=== PATIENT | female | born 1940 | race Caucasian/White ===

== ENCOUNTER → 2019-10-15 | Outpatient (CLI) | payer MEDICARE, OTHER ==
[~2019-10-15] MED LIST: /FEXO18TA; ASPI81TA45; ASPI81TA7 PO; ATEN25TA OR; B COCAP5; CALA240T PO; CALC500T49; CELE1CAP4 PO; CENTRUM SILVER; COLA100C2 PO; COUM1TAB18; COUM1TAB18 PO; HAIR1CAP2 PO; LYRI75CA PO; MAGN250T; METHACHOLINE KIT (J7674) INH ONE; MILKSUS; NASONEX; OXYC1TAB23 PO; PERC5TAB8; PERC7.5T8; PROT1TAB2; RANI1TAB17 OR; RELPAX PO; SENO8.6T5; STOOL SOFTENER; TRIC145T19 PO; TURMCAP PO; TYLE325T5 PO; VITA100067 PO; ZEST10TA; ZOLP-189 PO; gas x OR; ocean spray
--- NOTE | 2019-11-06 15:58 | METHCHAL ---
QUALITY: Study of excellent technical quality. PROCEDURE: Under protocol, methacholine was administered. Even after a maximal dose of 25 mg or 18.875 CDUs, no provocation was ever achieved. IMPRESSION: Negative methacholine challenge study MTDD
--- NOTE | 2019-11-09 07:31 | PFTRPT ---
Visit Date: 10/15/2019 Second ID: [id number] Referring Doctor: Shaw Lunsford MD Height: 61.00 Inches Weight: 216.00 Lbs BSA: 1.95 Diagnosis: R06.02 QUALITY: Study of excellent technical quality. PROCEDURE: Under protocol, methacholine was administered. Even after a total dose of 25 mg or 188.875 CDUs, no provocation dose ever achieved. IMPRESSION: Negative methacholine challenge study. MTDD
== END ==
LOC: M CARPUL 07:10
PROVIDERS: ATTEND Internal Medicine Pulmonary Disease
DX: R06.02 Shortness of breath (principal)
CPT/HCPCS: 94070; 95070; J7674

== ENCOUNTER → 2020-05-24 | Outpatient (REF) | payer MEDICARE, OTHER ==
[~2020-05-24] MED LIST changes: -METHACHOLINE KIT (J7674) INH ONE
== END ==
LOC: M WUC 12:17
PROVIDERS: ATTEND Physician Assistant
DX: R10.84 Generalized abdominal pain (principal)

== ENCOUNTER → 2020-09-23 | Outpatient (REF) | payer MEDICARE, OTHER ==
[2020-09-24 07:34] LABS: H PYLORI QUALITATIVE IgG NEGATIVE (NEGATIVE)
== END ==
LOC: M LAB REF 16:22
PROVIDERS: ATTEND Physician Assistant Medical
DX: R10.13 Epigastric pain (principal)

== ENCOUNTER → 2020-10-14 | Outpatient (CLI) | payer MEDICARE, OTHER ==
[~2020-10-14] MED LIST changes: +ATEN25TA PO; +ATOR1TAB19 PO; +D31000TA2 PO; +ELIQ2.5T PO; +PANT40TA29 PO; +PEPC40TA12 PO; +SM HTAB3 PO; +[UNRECOGNIZED DRUG - OTHER] PO
== END ==
LOC: M LABSMTC 10:05
PROVIDERS: ATTEND Anesthesiology
DX: Z01.812 Encounter for preprocedural laboratory examination (principal); Z20.822 Contact with and (suspected) exposure to COVID-19

== ENCOUNTER → 2020-10-18 | Outpatient (CLI) | payer MEDICARE, OTHER ==
--- NOTE | 2020-10-18 09:56 | REP ---
INDICATION: RUQ PAIN COMPARISON: 05/12/2014 TECHNIQUE: Real time chowdhury scale ultrasound examination using curved array transducer. FINDINGS: Liver is normal in contour, size, and echogenicity without focal hepatic lesions identified. Pancreas is incompletely evaluated due to interposed bowel gas. The gallbladder is normal and without gallstones, wall thickening, or pericholecystic fluid. No biliary ductal dilatation is appreciated and the common bile duct is upper limits of normal for age at 8 mm diameter. Right kidney measures 11.3 x 5.8 x 4.4 cm with multiple suspected peripelvic cysts measuring up to 16 mm and 4 mm nonobstructing lower pole calculus. No ascites in the visualized right upper quadrant. IMPRESSION: Nonacute renal findings as noted above. <Electronically signed by Maury Wells > 10/18/20 [id number]
== END ==
LOC: M RAD 09:01
PROVIDERS: ATTEND Physician Assistant
DX: N20.0 Calculus of kidney (principal)

== ENCOUNTER 2020-10-19 11:21 | Day surgery (SDC) | payer MEDICARE, OTHER ==
[~2020-10-19] VITALS: Ht 154.9 cm; Wt 93.4 kg
[~2020-10-19 11:21] MED LIST changes: +NS 1,000 ML IV ONE
[2020-10-19] MEDS ORDERED: fentaNYL 100 MCG/2 ML INJECTION (J3010) As Ordered ONE (12:44)
[2020-10-19] MEDS ORDERED: propofoL 200 MG/20 ML VIAL As Ordered ONE (12:45)
[2020-10-19] MEDS ORDERED: LIDOCAINE 2% 100MG/5ML SDV (FOR ANES.) As Ordered ONE (12:45)
--- NOTE | 2020-10-19 13:00 | ROOR ---
Patient Name: Moshe Mcbride Procedure Date: 10/19/2020 12:50 PM Date of : 1940 Age: 80 Room: [facility] Gender: Female Note Status: Finalized Procedure: Upper GI endoscopy Indications: Epigastric abdominal pain, Generalized abdominal pain Providers: Haider Kay Jr, MD Referring MD: Carlos Saavedra MD Requesting Provider: Medicines: Propofol per Anesthesia Complications: No immediate complications. Procedure: Pre-Anesthesia Assessment: - Prior to the procedure, a History and Physical was performed, and patient medications and allergies were reviewed. The patient is competent. The risks and benefits of the procedure and the sedation options and risks were discussed with the patient. All questions were answered and informed consent was obtained. Patient identification and proposed procedure were verified by the physician and the nurse in the pre-procedure area and in the procedure room. Mental Status Examination: alert and oriented. Airway Examination: normal oropharyngeal airway and neck mobility. Respiratory Examination: clear to auscultation. CV Examination: normal. ASA Grade Assessment: II - A patient with mild systemic disease. After reviewing the risks and benefits, the patient was deemed in satisfactory condition to undergo the procedure. The anesthesia plan was to use moderate sedation / analgesia (conscious sedation). Immediately prior to administration of medications, the patient was re-assessed for adequacy to receive sedatives. The heart rate, respiratory rate, oxygen saturations, blood pressure, adequacy of pulmonary ventilation, and response to care were monitored throughout the procedure. The physical status of the patient was re-assessed after the procedure. The Endoscope was introduced through the mouth, and advanced to the second part of duodenum. The patient tolerated the procedure well. The upper GI endoscopy was accomplished without difficulty. Findings: The upper third of the esophagus, middle third of the esophagus and lower third of the esophagus were normal. A small hiatal hernia was present. The cardia, gastric fundus, gastric body, gastric antrum, prepyloric region of the stomach and pylorus were normal. The duodenal bulb, first portion of the duodenum and second portion of the duodenum were normal. Impression: - Normal upper third of esophagus, middle third of esophagus and lower third of esophagus. - Small hiatal hernia. - Normal cardia, gastric fundus, gastric body, antrum, prepyloric region of the stomach and pylorus. - Normal duodenal bulb, first portion of the duodenum and second portion of the duodenum. - No specimens collected. Recommendation: - Discharge patient to home (ambulatory). - Return to my office as previously scheduled. Procedure Code(s): --- Professional --- 79471, Esophagogastroduodenoscopy, flexible, transoral; diagnostic, including collection of specimen(s) by brushing or washing, when performed (separate procedure) Diagnosis Code(s): --- Professional --- K44.9, Diaphragmatic hernia without obstruction or gangrene R10.13, Epigastric pain R10.84, Generalized abdominal pain CPT copyright 2019 [employer]. All rights reserved. The codes documented in this report are preliminary and upon skidder lever operator review may be revised to meet current compliance requirements. Haider Kay MD Haider Kay Jr, MD 10/19/2020 1:00:37 PM Electronically signed by Haider Kay Jr, MD Number of Addenda: 0 Note Initiated On: 10/19/2020 12:50 PM Estimated Blood Loss: Estimated blood loss: none.
--- NOTE | 2020-10-19 13:19 | ROOR ---
Patient Name: Moshe Mcbride Procedure Date: 10/19/2020 12:50 PM Date of : 1940 Age: 80 Room: [facility] Gender: Female Note Status: Finalized Procedure: Colonoscopy Indications: Generalized abdominal pain Providers: Haider Kay Jr, MD Referring MD: Carlos Saavedra MD Requesting Provider: Medicines: Propofol per Anesthesia Complications: No immediate complications. Procedure: Pre-Anesthesia Assessment: - Prior to the procedure, a History and Physical was performed, and patient medications and allergies were reviewed. The patient is competent. The risks and benefits of the procedure and the sedation options and risks were discussed with the patient. All questions were answered and informed consent was obtained. Patient identification and proposed procedure were verified by the physician and the nurse in the pre-procedure area and in the procedure room. Mental Status Examination: alert and oriented. Airway Examination: normal oropharyngeal airway and neck mobility. Respiratory Examination: clear to auscultation. CV Examination: normal. ASA Grade Assessment: II - A patient with mild systemic disease. After reviewing the risks and benefits, the patient was deemed in satisfactory condition to undergo the procedure. The anesthesia plan was to use moderate sedation / analgesia (conscious sedation). Immediately prior to administration of medications, the patient was re-assessed for adequacy to receive sedatives. The heart rate, respiratory rate, oxygen saturations, blood pressure, adequacy of pulmonary ventilation, and response to care were monitored throughout the procedure. The physical status of the patient was re-assessed after the procedure. The Colonoscope was introduced through the anus and advanced to the cecum, identified by appendiceal orifice and ileocecal valve. The colonoscopy was performed without difficulty. The patient tolerated the procedure well. The quality of the bowel preparation was adequate. Findings: The rectum, recto-sigmoid colon, transverse colon, ascending colon, cecum, appendiceal orifice and ileocecal valve appeared normal. Two polyps were found in the sigmoid colon and descending colon. The polyps were diminutive in size. These polyps were removed with a cold snare. Resection was complete, but the polyp tissue was only partially retrieved. Scattered small and large-mouthed diverticula were found in the sigmoid colon. Impression: - The rectum, recto-sigmoid colon, transverse colon, ascending colon, cecum, appendiceal orifice and ileocecal valve are normal. - Two diminutive polyps in the sigmoid colon and in the descending colon, removed with a cold snare. Complete resection. Partial retrieval. - Diverticulosis in the sigmoid colon. Recommendation: - Discharge patient to home (ambulatory). - Repeat colonoscopy in 5 years for surveillance based on pathology results. Procedure Code(s): --- Professional --- 69021, Colonoscopy, flexible; with removal of tumor(s), polyp(s), or other lesion(s) by snare technique Diagnosis Code(s): --- Professional --- K63.5, Polyp of colon R10.84, Generalized abdominal pain K57.30, Diverticulosis of large intestine without perforation or abscess without bleeding CPT copyright 2019 [employer]. All rights reserved. The codes documented in this report are preliminary and upon residential instructor review may be revised to meet current compliance requirements. Haider Kay MD Haider Kay Jr, MD 10/19/2020 1:19:16 PM Electronically signed by Haider Kay Jr, MD Number of Addenda: 0 Note Initiated On: 10/19/2020 12:50 PM Estimated Blood Loss: Estimated blood loss: none.
[2020-10-19 14:25] VITALS: BP 192/74
== END 2020-10-19 14:35 | disposition home or self-care (01) ==
LOC: M OPP 11:21
PROVIDERS: ATTEND Surgery
DX: R10.84 Generalized abdominal pain (principal); R10.13 Epigastric pain; R19.4 Change in bowel habit; K21.9 Gastro-esophageal reflux disease without esophagitis; D12.6 Benign neoplasm of colon, unspecified; K57.30 Diverticulosis of large intestine without perforation or abscess without bleeding; K44.9 Diaphragmatic hernia without obstruction or gangrene; I10 Essential (primary) hypertension; E78.5 Hyperlipidemia, unspecified; M19.90 Unspecified osteoarthritis, unspecified site; G43.909 Migraine, unspecified, not intractable, without status migrainosus; Z96.651 Presence of right artificial knee joint; Z88.1 Allergy status to other antibiotic agents; Z88.2 Allergy status to sulfonamides; Z88.8 Allergy status to other drugs, medicaments and biological substances; Z79.01 Long term (current) use of anticoagulants; Z79.899 Other long term (current) drug therapy
CPT/HCPCS: 43235; 45385; 88305; J3010

== ENCOUNTER → 2020-11-02 | Outpatient (CLI) | payer MEDICARE, OTHER ==
[~2020-11-02] MED LIST changes: -NS 1,000 ML IV ONE
--- NOTE | 2020-11-02 16:29 | REP ---
INDICATION: GENERALIZED ABDOMINAL PAIN. COMPARISON: None TECHNIQUE/RADIOTRACER AND DOSE: FOLLOWING THE INTRAVENOUS ADMINISTRATION OF 6.5 MCI TECHNETIUM 99 M-MEBROFENIN, MULTIPLE IMAGES OF THE RIGHT UPPER QUADRANT ARE PERFORMED FOR 60 MINUTES. NEXT 8 OZ OF ENSURE ENLIVE IS INGESTED AND FURTHER IMAGING IS PERFORMED FOR 65 MINUTES. FINDINGS: THE GALLBLADDER IS VISUALIZED AT 25 MINUTES POST INJECTION. THERE IS BILIARY TO BOWEL TRANSIT AT 15MINUTES POST INJECTION. THERE IS NO SCINTIGRAPHIC EVIDENCE OF CHOLECYSTITIS. GALLBLADDER EJECTION FRACTION IS CALCULATED TO BE 87% WHICH IS NORMAL. IMPRESSION: NORMAL GALLBLADDER EJECTION FRACTION. <Electronically signed by Moo Almanzar > 11/02/20 [id number]
== END ==
LOC: M RAD 08:49
PROVIDERS: ATTEND Surgery
DX: R10.84 Generalized abdominal pain (principal); K57.30 Diverticulosis of large intestine without perforation or abscess without bleeding
CPT/HCPCS: 78227; A9537

== ENCOUNTER 2021-02-13 06:45 | Inpatient (IN) | payer MEDICARE, OTHER ==
[~2021-02-13] VITALS: Ht 157.5 cm; Wt 94.7 kg
[2021-02-13] VITALS (7 sets, daily range): BP systolic 122–132; BP diastolic 59–91
[2021-02-13] MEDS ORDERED: NS 500 ML IV ONE (07:25)
[2021-02-13] MEDS ORDERED: MORPHINE 2 MG/ML 1ML VIAL (J2270) IV PRN ×4 (07:25→15:15)
[2021-02-13] MEDS ORDERED: ONDANSETRON 4MG/2ML VIAL IV ONE (07:25)
[2021-02-13 08:26] LABS: BASO % 0.1 % (0.0-1.0); EOS % 0.1 % (0.0-3.0); HEMATOCRIT 39.9 % (36.0-47.0); HEMOGLOBIN 13.3 g/dl (12.0-15.5); LYMPH # 0.4 10^3/uL (1.5-5.0); LYMPH % 2.9 % (24.0-44.0); MEAN CORPUSCULAR HEMOGLOBIN 30.2 pg (27.0-33.0); MEAN CORPUSCULAR HGB CONC 33.3 g/dl (32.0-36.5); MEAN CORPUSCULAR VOLUME 90.7 fl (80.0-96.0); MONO # 0.6 10^3/uL (0.0-0.8); MONO % 3.9 % (2.0-8.0); NEUTROPHILS # 13.7 10^3/uL (1.5-8.5); NEUTROPHILS % 92.3 % (36.0-66.0); PLATELET COUNT, AUTOMATED 145 10^3/uL (150-450); WHITE BLOOD COUNT 14.8 10^3/uL (4.0-10.0)
[2021-02-13] MEDS ORDERED: ISOVUE-370 76% 100ML VIAL As Ordered ONE (08:46)
[2021-02-13 09:02] LABS: ALBUMIN 3.1 GM/DL (3.2-5.2); BILIRUBIN,DIRECT 0.2 MG/DL (0.0-0.2); BILIRUBIN,TOTAL 0.6 MG/DL (0.2-1.0); TOTAL PROTEIN 6.1 GM/DL (6.4-8.2)
--- NOTE | 2021-02-13 09:18 | REP ---
INDICATION: rlq pain, no hx appendicitis; ro diverticulitis. COMPARISON: None TECHNIQUE: Axial contrast-enhanced images from the lung bases to the pubic symphysis using 100 cc Isovue 370 intravenous contrast material. Coronal and sagittal reformations obtained. This CT examination was performed using the following dose reduction techniques: Automated exposure control, adjustment of mA and/or kv according to the patient's size, and the use of iterative reconstruction technique. FINDINGS: Acute right-sided obstructive uropathy with hydroureteronephrosis and perinephric/periureteral stranding secondary to a 7 mm obstructing calculus in the distal right ureter approximately 3 cm from the ureterovesical junction (series 201; images 119-120). Small 2 mm nonobstructing right renal calculi are also identified. Left kidney is grossly normal. Liver includes hemangioma in the dome of the posterior right hepatic lobe. Spleen includes calcifications suggesting prior granulomatous disease. Pancreas, gallbladder, and bilateral adrenal glands are normal. The enteric system is without obstruction or acute inflammatory process. Colonic diverticulosis noted without acute diverticulitis. Pelvis demonstrates normal bladder and evidence for prior hysterectomy. No ascites. No free air. No adenopathy. Atherosclerotic changes to the aorta noted without aneurysm or dissection. Musculoskeletal structures demonstrate age-related degenerative changes. Lung bases demonstrate chronic granulomatous disease. IMPRESSION: 1. Acute moderate right-sided obstructive uropathy with a 7 mm obstructing calculus in the distal right ureter along with 2 mm nonobstructing right renal calculus. 2. Benign hepatic hemangioma. 3. Diverticulosis. <Electronically signed by Maury Wells > 02/13/21 0943
[2021-02-13] MEDS ORDERED: MEROPENEM INJ 1 GM in IV 1 EA IV ONE (10:30)
[2021-02-13] MEDS ORDERED: NS 1,000 ML IV ONE ×2 (10:35→11:15)
[2021-02-13] MEDS ORDERED: ACETAMINOPHEN 325 MG TAB PO ONE (10:35)
[2021-02-13] MEDS ORDERED: KETOROLAC 30 MG/ML 1ML VIAL IV ONE (10:40)
[2021-02-13] MEDS ORDERED: ELIQ5TAB PO (11:03)
[2021-02-13] MEDS ORDERED: ELET40TA PO (11:03)
[2021-02-13] MEDS ORDERED: ESTR62CR VG (11:03)
[2021-02-13] MEDS ORDERED: HOME MED LIST COMPLETE! XX SCH (11:05)
--- NOTE | 2021-02-13 11:12 | HPEPDOC ---
[facility] Medical History & Physical Date of Admission Feb 13, 2021 Date of Service: Feb 13, 2021 History and Physical CHIEF COMPLAINT: "Right side pain" HISTORY OF PRESENT ILLNESS: 80-year-old female with past medical history of atrial fibrillation, hypertension, hyperlipidemia, migraines, and gastritis presented to emergency room department with complaints of sharp right flank pain. Patient was lethargic after receiving morphine but arousable and able to answer questions appropriately. Due to her pain majority of the history was obtained from the was on the phone. On 02/10 she began to have right flank pain which she thought was a pulled muscle therefore did not seek medical advice. However, today she began to experience chills and worsening pain therefore prompting her to come to the emergency room department for further evaluation. The pain wraps around from the pelvic region into her right flank. She is unable to identify any aggravating relieving factors. She also reports having dysuria. She denies hematuria. She denies chest pain, shortness of breath, nausea, vomiting, problem with bowel movements. Emergency room department patient was febrile (to 103), tachycardic and CT scan showed findings consistent with obstructive uropathy. PAST MEDICAL HISTORY: As above PAST SURGICAL HISTORY: Hysterectomy, appendectomy, carpal tunnel release of the right hand, right knee surgery x2, bladder suspension, hemorrhoid surgery. SOCIAL HISTORY: Lives with her . Denies smoking, drinking, use of recreational drugs FAMILY HISTORY: Father: Diabetes and coronary artery disease Mother: Emphysema ALLERGIES: Please see below. REVIEW OF SYSTEMS: 10 point review of system was negative except for what is noted in the HPI HOME MEDICATIONS: Please see below. PHYSICAL EXAMINATION: VITAL SIGNS: Please see below General: Lying in bed, no acute distress Head/Neck/Throat: Trachea midline, mucous membranes moist Eyes: Sclera anicteric, PERRLA Thorax: Normal respiratory effort on room air, lungs clear to auscultation bilaterally, no wheezes/rales/rhonchi Cardiovascular: Tachycardia to 125, regular rhythm, normal S1, S2; no S3, S4, rubs/gallops/murmurs Abdomen: Bowel sounds present, soft/nontender/nondistended Genitourinary: Right-sided CVA tenderness Musculoskeletal: Moving all extremities, no edema Skin: Warm, dry Neurologic: AAOx3, speech fluent and goal-directed, no focal deficits, grossly intact LABORATORY DATA: See below. IMAGING: Please see imaging section MICROBIOLOGY: Please see below. ASSESSMENT/PLAN: 80-year-old female presented emergency room department with right-sided flank pain. In emergency room department she was noted to ne tachycardic to 125, febrile with temperature of 103, and leukocytosis (14.8). CT scan showed right- sided obstructive uropathy. #Sepsis -Meets SIRS criteria with known source - secondary to obstructive uropathy causing pyelonephritis. 30cc/kg fluids to be given, and then to be started on maintenance fluids. Hemodynamically stable at this time, and lactic acid within normal limits. Follow-up on blood and urine cultures. Continue with broad-spectrum antibiotics. Urology has been consulted for likely decompression. #Obstructive uropathy/pyelonephritis -Plan above -will give morphine in low doses for her pain as she is sensitive. #Electrolyte abnormality -Replete potassium. #Atrial fibrillation with rapid ventricular response -Exacerbated secondary to acute infection. Following fluid resuscitation if patient's heart rate remains elevated we will treat her with beta-yan if needed. Hold systemic anticoagulation for anticipation of possible surgical intervention. #Gastritis -Continue with Protonix. #DVT prophylaxis -Anticipate surgery, therefore we will hold off on chemical prophylaxis and start SCDs. Vital Signs Vital Signs Date Time Temp Pulse Resp B/P (MAP) Pulse Ox O2 Delivery O2 Flow Rate FiO2 02/13/21 08:00 22 Room Air 02/13/21 06:58 99.2 105 169/71 (103) 95 Laboratory Data Labs 24H Laboratory Tests 2 02/13/21 08:14: Immature Granulocyte % (Auto) 0.7, Neutrophils (%) (Auto) 92.3H, Lymphocytes (%) (Auto) 2.9L, Monocytes (%) (Auto) 3.9, Eosinophils (%) (Auto) 0.1, Basophils (%) (Auto) 0.1, Neutrophils # (Auto) 13.7H, Lymphocytes # (Auto) 0.4L, Monocytes # (Auto) 0.6, Eosinophils # (Auto) 0.0, Basophils # (Auto) 0.0, Nucleated Red Blood Cells % (auto) 0.0, Urine Color YELLOW, Urine Appearance CLOUDYH, Urine pH 5.0, Urine Specific [place] 1.024, Urine Protein 1+H, Urine Glucose (UA) NEGATIVE, Urine Ketones TRACEH, Urine Blood 3+H, Urine Nitrite POSITIVEH, Urine Bilirubin NEGATIVE, Urine Urobilinogen 0.2, Urine Leukocyte Esterase 2+H, Urine WBC (Auto) 159H, Urine RBC (Auto) 21H, Urine Hyaline Casts (Auto) 0, Urine Bacteria (Auto) 1+H, Urine Squamous Epithelial Cells 18, Urine Transitional Epithelial Cells 1, Urine Mucus (Auto) SMALL, Urine Sperm (Auto) , Total Bilirubin 0.6, Direct Bilirubin 0.2, Aspartate Amino Transf (AST/SGOT) 24, Alanine Aminotransferase (ALT/SGPT) 28, Alkaline Phosphatase 98, ZE-Ctc-I-Type Natriuretic Peptide 210, Total Protein 6.1L, Albumin 3.1L, Albumin/Globulin Ratio 1.0L, Amylase Level 12L, Lipase 45L 02/13/21 08:15: POC Lactate (Misc Panel) 1.42 02/13/21 08:20: POC Glucose (Misc Panel) 103, POC Sodium (Misc Panel) 142, POC Potassium (Misc Panel) 3.4L, POC Chloride (Misc Panel) 108, POC Total CO2 (Misc Panel) 22.0L, POC Blood Urea Nitrogen (Misc Panel 30H, POC Ionized Calcium (Misc Panel) 4.5, POC Creatinine (Misc Panel) 0.6, POC Hematocrit (Misc Panel) 41.0 CBC/BMP Laboratory Tests 02/13/21 08:14 Microbiology Microbiology 02/13/21 Blood Culture, Received Pending 02/13/21 Urine Culture, Received Pending 02/13/21 Blood Culture, Received Pending Home Medications Scheduled Apixaban (Eliquis) 5 Mg Tablet, 5 MG PO BID Atorvastatin Calcium (Atorvastatin Calcium) 10 Mg Tablet, 10 MG PO DAILY Cholecalciferol (Vitamin D3) (Vitamin D3) 1,000 Unit Tablet, 1,000 UNITS PO DAILY Conjugated Estrogens (Premarin) 30 Gm Cream.appl, 0.25 GM VG 3XW Famotidine (Pepcid) 40 Mg Tablet, 40 MG PO DAILY Pantoprazole Sodium (Pantoprazole Sodium) 40 Mg Tablet.dr, 40 MG PO DAILY Verapamil Hcl (Calan Sr) 240 Mg Tablet.er, 240 MG PO DAILY Scheduled PRN Eletriptan Hydrobromide (Eletriptan HBr) 40 Mg Tablet, 40 MG PO BID PRN for MIGRAINE Allergies Coded Allergies: erythromycin base (Verified Allergy, Unknown, 02/13/21) Sulfa (Sulfonamide Antibiotics) (Verified Adverse Reaction, Mild, N/V, 02/13/21) niacin (Verified Adverse Reaction, Mild, hot flashes, 02/13/21) phenobarbital (Verified Adverse Reaction, Mild, AGITATION, 02/13/21) pravastatin (Verified Adverse Reaction, Mild, bones ache, 02/13/21) A-FIB/CHADSVASC A-FIB History Current/History of A-Fib/PAF?: Yes Current PO Anticoag Therapy: Yes SELENE ZAFAR M.D. Feb 13, 2021 11:12
[2021-02-13] MEDS ORDERED: MORPHINE 4 MG/ML 1ML VIAL/SYRINGE (J2270) IV PRN (11:15)
[2021-02-13 11:16] LABS: RSV AMPLIFICATION NEGATIVE (NEGATIVE)
[2021-02-13] MEDS ORDERED: ACETAMINOPHEN SUSP DYE FREE 160 MG/5 ML UDC PO ONE (11:35)
--- NOTE | 2021-02-13 11:40 | REP ---
INDICATION: pyelo COMPARISON: 09/13/2015 TECHNIQUE: Portable AP view of the chest FINDINGS: The mediastinum and cardiac silhouette are stable and within normal limits for portable technique. The lung queen are clear without acute consolidation, effusion, or pneumothorax. Skeletal structures are intact. IMPRESSION: No acute cardiopulmonary process appreciated. <Electronically signed by Maury Wells > 02/13/21 [id number]
[2021-02-13] MEDS ORDERED: NALOXONE INJ 0.4MG/1ML VIAL (J2310 PER 1MG) IV PRN (11:45)
[2021-02-13] MEDS: PANTOPRAZOLE 40MG VIAL (C9113 PER 1) IV SCH (11:50)
[2021-02-13] MEDS ORDERED: KCL 10MEQ/100ML SWI (KRUN) 10 MEQ in IV 1 EA IV SCH (13:00)
--- NOTE | 2021-02-13 13:41 | IPNPDOC ---
Date Seen The patient was seen on 02/13/21. Progress Note Obstructing right ureteral stone. Tachycardia, fever, leukocytosis. Plan is right ureteral stent placement under anesthesia. I reviewed the imaging. I reviewed the hospitalist's history and physical. I talked with the patient. She is in agreement. VS, I&O, 24H, Aamirbone Vital Signs/I&O Vital Signs Date Time Temp Pulse Resp B/P (MAP) Pulse Ox O2 Delivery O2 Flow Rate FiO2 02/13/21 11:15 123 18 150/66 (94) 95 Nasal Cannula 2.0 02/13/21 10:00 103.7 Laboratory Data 24H LABS Laboratory Tests 2 02/13/21 08:14: Immature Granulocyte % (Auto) 0.7, Neutrophils (%) (Auto) 92.3H, Lymphocytes (%) (Auto) 2.9L, Monocytes (%) (Auto) 3.9, Eosinophils (%) (Auto) 0.1, Basophils (%) (Auto) 0.1, Neutrophils # (Auto) 13.7H, Lymphocytes # (Auto) 0.4L, Monocytes # (Auto) 0.6, Eosinophils # (Auto) 0.0, Basophils # (Auto) 0.0, Nucleated Red Blood Cells % (auto) 0.0, Urine Color YELLOW, Urine Appearance CLOUDYH, Urine pH 5.0, Urine Specific [place] 1.024, Urine Protein 1+H, Urine Glucose (UA) NEGATIVE, Urine Ketones TRACEH, Urine Blood 3+H, Urine Nitrite POSITIVEH, Urine Bilirubin NEGATIVE, Urine Urobilinogen 0.2, Urine Leukocyte Esterase 2+H, Urine WBC (Auto) 159H, Urine RBC (Auto) 21H, Urine Hyaline Casts (Auto) 0, Urine Bacteria (Auto) 1+H, Urine Squamous Epithelial Cells 18, Urine Transitional Epithelial Cells 1, Urine Mucus (Auto) SMALL, Urine Sperm (Auto) , Total Bilirubin 0.6, Direct Bilirubin 0.2, Aspartate Amino Transf (AST/SGOT) 24, Alanine Aminotransferase (ALT/SGPT) 28, Alkaline Phosphatase 98, UQ-Kxk-K-Type Natriuretic Peptide 210, Total Protein 6.1L, Albumin 3.1L, Albumin/Globulin Ratio 1.0L, Amylase Level 12L, Lipase 45L, Coronavirus (COVID-19)(PCR) NEGATIVE, Influenza Type A (RT-PCR) NEGATIVE, Influenza Type B (RT-PCR) NEGATIVE, Respiratory Syncytial Virus (PCR) NEGATIVE 02/13/21 08:15: POC Lactate (Misc Panel) 1.42 02/13/21 08:20: POC Glucose (Misc Panel) 103, POC Sodium (Misc Panel) 142, POC Potassium (Misc Panel) 3.4L, POC Chloride (Misc Panel) 108, POC Total CO2 (Misc Panel) 22.0L, POC Blood Urea Nitrogen (Misc Panel 30H, POC Ionized Calcium (Misc Panel) 4.5, POC Creatinine (Misc Panel) 0.6, POC Hematocrit (Misc Panel) 41.0 CBC/BMP Laboratory Tests 02/13/21 08:14 Microbiology Microbiology 02/13/21 Blood Culture, Received Pending 02/13/21 Urine Culture, Received Pending 02/13/21 Blood Culture, Received Pending PINKY CHRISTENSEN MD Feb 13, 2021 13:41
[2021-02-13] MEDS ORDERED: dexameTHASONE 4 MG/ML 1ML VIAL (J1100 PER 1MG) As Ordered ONE (13:44)
[2021-02-13] MEDS ORDERED: ONDANSETRON 4MG/2ML VIAL As Ordered ONE (13:44)
[2021-02-13] MEDS ORDERED: propofoL 200 MG/20 ML VIAL As Ordered ONE (13:44)
[2021-02-13] MEDS ORDERED: LIDOCAINE 2% 100MG/5ML SDV (FOR ANES.) As Ordered ONE (13:44)
[2021-02-13] MEDS ORDERED: CONRAY-60 60% 50ML VIAL (Q9961) As Ordered ONE (13:44)
[2021-02-13] MEDS ORDERED: fentaNYL 100 MCG/2 ML INJECTION (J3010) As Ordered ONE (13:44)
[2021-02-13] MEDS ORDERED: MIDAZOLAM INJ 2MG/2ML VIAL (J2250 PER 1MG) As Ordered ONE (13:44)
[2021-02-13] MEDS ORDERED: SEVOFLURANE INHAL SOLN 250 ML BTL As Ordered ONE (13:52)
--- NOTE | 2021-02-13 13:53 | SMCUROLCON ---
Urology Consultation General Date of Consultation 02/13/21 Reason For Consultation asked to see this 80yo woman because of a right ureteral stone History of Present Illness 80-year-old woman. Presented to the ER with right flank pain. CT obtained. There is a stone in the distal ureter causing obstruction. Patient is febrile and tachycardic. Leukocytosis. Creatinine normal. Lactate 1.42. Urine and blood cultures pending. Past Medical History Medical History Hypertension, A. fib, hyperlipidemia, migraines Surgical Hstory Appendectomy, hysterectomy, right carpal tunnel, right knee surgery x2, bladder suspension, hemorrhoid surgery Family History Significant Family History: No pertinent family hx Social History Social History , denies tobacco Medications Current Medications Current Medications Medications (Trade) Dose Ordered Sig/Maria L Route PRN Reason Start Time Stop Time Status Last Admin Dose Admin Home Med (Home Med List Complete!) ASDIRECTED XX 02/13/21 11:05 02/13/21 11:09 DC Ketorolac Tromethamine (ToRADol) 15 mg Q8H PRN IV PAIN LEVEL 1-4 02/13/21 11:15 02/18/21 11:14 Morphine Sulfate (Morphine Sulfate Inj) 1 mg Q4H PRN IV PAIN LEVEL 5-7 02/13/21 15:15 Morphine Sulfate (Morphine Sulfate Inj) 2 mg Q30M PRN IV MODERATE PAIN (PS 5-7) 02/13/21 07:25 02/13/21 11:22 DC 02/13/21 08:00 Morphine Sulfate (Morphine Sulfate Inj) 2 mg Q30M PRN IV MODERATE PAIN (PS 5-7) 02/13/21 10:40 02/13/21 11:22 DC Morphine Sulfate (Morphine Sulfate Inj) 2 mg Q4H PRN IV PAIN LEVEL 5-7 02/13/21 11:15 02/13/21 11:41 DC Morphine Sulfate (Morphine Sulfate Inj) 2 mg Q4H PRN IV PAIN LEVEL 7-10 02/13/21 15:15 Morphine Sulfate (Morphine Sulfate Inj) 4 mg Q4H PRN IV PAIN LEVEL 7-10 02/13/21 11:15 02/13/21 11:41 DC Naloxone HCl (Narcan) 0.1 mg Q5MP PRN IV RESP. RATE < 10 02/13/21 11:45 Pantoprazole Sodium (Protonix) 40 mg DAILY IV 02/13/21 11:25 02/13/21 11:50 Piperacillin Sod/ Tazobactam Sod 3.375 gm/Dextrose 50 ml @ 50 mls/hr Q6H IV 02/13/21 16:00 Potassium Chloride 10 meq/ IV Miscellaneous Supplies 100 ml @ 100 mls/hr Q1H IV 02/13/21 13:00 02/13/21 17:59 Sodium Chloride 1,000 ml @ 125 mls/hr Q8H IV 02/13/21 11:25 Allergies Allergies: Coded Allergies: erythromycin base (Verified Allergy, Unknown, 02/13/21) Sulfa (Sulfonamide Antibiotics) (Verified Adverse Reaction, Mild, N/V, 02/13/21) niacin (Verified Adverse Reaction, Mild, hot flashes, 02/13/21) phenobarbital (Verified Adverse Reaction, Mild, AGITATION, 02/13/21) pravastatin (Verified Adverse Reaction, Mild, bones ache, 02/13/21) Review of Systems General: Denies: Night Sweats Constitutional: Reports: Fever Eyes: Denies: Vision change ENT: Denies: Head Aches Skin: Denies: Rash Pulmonary: Denies: Cough Cardiovascular: Denies Chest Pain Gastrointestinal: Denies: Diarrhea Genitourinary: Denies: Hematuria Hematologic: Denies: Bruising Endocrine: Denies: Polydipsia Musculoskeletal: Denies: Neck Pain Neurological: Denies: Weakness Psych: Reports: Mood Normal Physical Examination General Exam: Alert, Moderate Distress EYE EXAM: Conjunctiva & lids normal ENT EXAM: Mucous membr. moist/pink Neck Exam: Supple Chest Exam: Normal air movement Heart Exam: Tachycardic Abdomen Exam: Soft Extremity Exam: No: Cyanosis Skin Exam: Nl turgor and temperature Neuro Exam: Normal Speech Psych Exam: Mental status NL Vital Signs/I&O Vital Signs Date Time Temp Pulse Resp B/P (MAP) Pulse Ox O2 Delivery O2 Flow Rate FiO2 02/13/21 11:15 123 18 150/66 (94) 95 Nasal Cannula 2.0 02/13/21 10:00 103.7 Laboratory Data 24H Labs Laboratory Tests 2 02/13/21 08:14: Immature Granulocyte % (Auto) 0.7, Neutrophils (%) (Auto) 92.3H, Lymphocytes (%) (Auto) 2.9L, Monocytes (%) (Auto) 3.9, Eosinophils (%) (Auto) 0.1, Basophils (%) (Auto) 0.1, Neutrophils # (Auto) 13.7H, Lymphocytes # (Auto) 0.4L, Monocytes # (Auto) 0.6, Eosinophils # (Auto) 0.0, Basophils # (Auto) 0.0, Nucleated Red Blood Cells % (auto) 0.0, Urine Color YELLOW, Urine Appearance CLOUDYH, Urine pH 5.0, Urine Specific [place] 1.024, Urine Protein 1+H, Urine Glucose (UA) NEGATIVE, Urine Ketones TRACEH, Urine Blood 3+H, Urine Nitrite POSITIVEH, Urine Bilirubin NEGATIVE, Urine Urobilinogen 0.2, Urine Leukocyte Esterase 2+H, Urine WBC (Auto) 159H, Urine RBC (Auto) 21H, Urine Hyaline Casts (Auto) 0, Urine Bacteria (Auto) 1+H, Urine Squamous Epithelial Cells 18, Urine Transitional Epithelial Cells 1, Urine Mucus (Auto) SMALL, Urine Sperm (Auto) , Total Bilirubin 0.6, Direct Bilirubin 0.2, Aspartate Amino Transf (AST/SGOT) 24, Alanine Aminotransferase (ALT/SGPT) 28, Alkaline Phosphatase 98, SY-Vix-L-Type Natriuretic Peptide 210, Total Protein 6.1L, Albumin 3.1L, Albumin/Globulin Ratio 1.0L, Amylase Level 12L, Lipase 45L, Coronavirus (COVID-19)(PCR) NEGATIVE, Influenza Type A (RT-PCR) NEGATIVE, Influenza Type B (RT-PCR) NEGATIVE, Respiratory Syncytial Virus (PCR) NEGATIVE 02/13/21 08:15: POC Lactate (Misc Panel) 1.42 02/13/21 08:20: POC Glucose (Misc Panel) 103, POC Sodium (Misc Panel) 142, POC Potassium (Misc Panel) 3.4L, POC Chloride (Misc Panel) 108, POC Total CO2 (Misc Panel) 22.0L, POC Blood Urea Nitrogen (Misc Panel 30H, POC Ionized Calcium (Misc Panel) 4.5, POC Creatinine (Misc Panel) 0.6, POC Hematocrit (Misc Panel) 41.0 CBC/BMP Laboratory Tests 02/13/21 08:14 Microbiology Microbiology 02/13/21 Blood Culture, Received Pending 02/13/21 Urine Culture, Received Pending 02/13/21 Blood Culture, Received Pending Assessment Obstructing right ureteral stone. Leukocytosis, fever, tachycardia. Plan Plan is placement of right ureteral stent under anesthesia. PINKY CHRISTENSEN MD Feb 13, 2021 13:53
--- NOTE | 2021-02-13 14:40 | ROOPDOC ---
[facility] Report Of Operation Report of Operation DATE OF PROCEDURE: 02/13/21 PREPROCEDURE DIAGNOSES: [obstructing right ureteral stone, leukocytosis, fever, tachycardia]. POSTPROCEDURE DIAGNOSES: [same]. PROCEDURE PERFORMED: [cysto, fluoro, right stent placement]. SURGEON: [Coco Christensen MD CAR WORKER: [none], ANESTHESIA: [lma general]. ESTIMATED BLOOD LOSS: Approximately [0] mL. COMPLICATIONS: [none]. REMARKS: [80-year-old white female presented to the ER with right flank pain. Imaging was done. Distal right ureteral stone. Sepsis. Leukocytosis, fever and tachycardia. Stent placement was arranged. Informed consent was obtained. Risks were discussed such as infection, bleeding, scarring and others]. FINDINGS: SPECIMENS REMOVED: PROCEDURE NOTE: . DESCRIPTION OF PROCEDURE: [I talked with the patient before surgery and answered her questions. She wished to proceed. Patient was brought to the OR room. LMA general anesthesia was secured. Dorsolithotomy position. Well-padded. Prepped and draped in usual sterile fashion. A timeout was performed. Surgery was done under antimicrobial coverage. Rigid cystoscopy was performed. Bladder filled with debris. Urine was brownish. The right ureteral orifice was identified. A wire was passed up the ureter as seen using fluoroscopy. Fluoroscopy demonstrated contrast still in the kidney and ureter from prior imaging. With the wire in place a 6 Japanese multilength stent was placed using the Seldinger technique. This ended surgery. The bladder was emptied and the cystoscope was removed. Patient tolerated everything well. Ureteroscopy some other admission.]. PINKY CHRISTENSEN MD Feb 13, 2021 14:40
[2021-02-13] MEDS ORDERED: fentaNYL 100 MCG/2 ML INJECTION (J3010) IV PRN (15:00)
[2021-02-13] MEDS ORDERED: ONDANSETRON 4MG/2ML VIAL IV PRN (15:00)
[2021-02-13] MEDS ORDERED: oxyCODONE 5MG TAB PO PRN (15:00)
[2021-02-13] MEDS ORDERED: LR 1,000 ML IV SCH (15:00)
--- NOTE | 2021-02-13 15:15 | REP ---
INDICATION: RIGHT STENT PLACEMENT. COMPARISON: None. TECHNIQUE: Intraoperative fluoroscopic imaging using portable C-arm technique. FINDINGS: Single image demonstrates moderate hydroureteronephrosis with a ureteral stent identified in satisfactory position. Total fluoroscopic time 3 seconds. IMPRESSION: Moderate hydroureteronephrosis with right ureteral stent placement. <Electronically signed by Maury Wells > 02/13/21 0079
[2021-02-13] MEDS: NS 1,000 ML IV SCH ×2 (15:53→20:37)
[2021-02-13] MEDS: PIPERACILLIN/TAZOBACTAM SOD 3.375 GM in D5W MINI-BAG PLUS 50 ML IV SCH ×2 (15:53→22:14)
[2021-02-13] MEDS: KCL 10MEQ/100ML SWI (KRUN) 10 MEQ in IV 1 EA IV SCH ×4 (17:27→23:23)
--- NOTE | 2021-02-13 19:11 | ECGEPIP ---
[facility] - ED Test Date: 2021-02-13 Pat Name: FRANCISCO JAVIER FLAHERTY Department: Room: - Gender: Female Braid Folder: [id number] : 1940 Requested By: Melina Castellanos Order Number: [id number] Reading MD: Nessa Gong Measurements Intervals [place] Rate: 125 P: 25 MT: 134 QRS: -28 QRSD: 74 T: 102 QT: 276 QTc: 398 Interpretive Statements Sinus tachycardia Possible Left atrial enlargement ST & T wave abnormality, consider ischemia increased rate 09/13/15 Electronically Signed on 02-13-2021 19:11:07 EST by Nessa Gong
[2021-02-13] MEDS ORDERED: ESTROGENS VAGINAL CREAM 30GM PV SCH (20:20)
[2021-02-13] MEDS ORDERED: SUMAtriptan SUCCINATE 25 MG TAB PO ONE (22:00)
[2021-02-14 00:50] VITALS: BP 135/68
[2021-02-14] MEDS: KETOROLAC 30 MG/ML 1ML VIAL IV PRN (00:51)
[2021-02-14] MEDS: KCL 10MEQ/100ML SWI (KRUN) 10 MEQ in IV 1 EA IV SCH (00:51)
[2021-02-14] MEDS: PIPERACILLIN/TAZOBACTAM SOD 3.375 GM in D5W MINI-BAG PLUS 50 ML IV SCH ×4 (05:44→21:38)
[2021-02-14 06:26] LABS: BASO % 0.1 % (0.0-1.0); HEMATOCRIT 38.1 % (36.0-47.0); HEMOGLOBIN 12.1 g/dl (12.0-15.5); LYMPH # 1.1 10^3/uL (1.5-5.0); LYMPH % 5.8 % (24.0-44.0); MEAN CORPUSCULAR HEMOGLOBIN 29.3 pg (27.0-33.0); MEAN CORPUSCULAR HGB CONC 31.8 g/dl (32.0-36.5); MEAN CORPUSCULAR VOLUME 92.3 fl (80.0-96.0); MONO # 1.2 10^3/uL (0.0-0.8); MONO % 6.4 % (2.0-8.0); NEUTROPHILS # 16.3 10^3/uL (1.5-8.5); NEUTROPHILS % 86.3 % (36.0-66.0); PLATELET COUNT, AUTOMATED 143 10^3/uL (150-450); RED BLOOD COUNT 4.13 10^6/uL (4.00-5.40); WHITE BLOOD COUNT 18.9 10^3/uL (4.0-10.0)
[2021-02-14 06:50] LABS: ALBUMIN 2.7 GM/DL (3.2-5.2); ALT/SGPT 36 U/L (12-78); BILIRUBIN,TOTAL 0.3 MG/DL (0.2-1.0); BLOOD UREA NITROGEN 30 MG/DL (7-18); CALCIUM LEVEL 8.8 MG/DL (8.8-10.2); CARBON DIOXIDE LEVEL 23 MEQ/L (21-32); CHLORIDE LEVEL 113 MEQ/L (98-107); CREATININE FOR GFR 0.68 MG/DL (0.55-1.30); GLOMERULAR FILTRATION RATE > 60.0 (>39); GLUCOSE, FASTING 125 MG/DL (70-100); MAGNESIUM LEVEL 2.1 MG/DL (1.8-2.4); PHOSPHORUS LEVEL 2.5 MG/DL (2.5-4.9); POTASSIUM SERUM 4.5 MEQ/L (3.5-5.1); SODIUM LEVEL 141 MEQ/L (136-145); TOTAL PROTEIN 6.4 GM/DL (6.4-8.2)
[2021-02-14] MEDS: PANTOPRAZOLE 40MG VIAL (C9113 PER 1) IV SCH (08:28)
[2021-02-14] MEDS: VERAPAMIL 120 MG SR TAB PO SCH (08:29)
[2021-02-14] MEDS: VITAMIN D 1,000 INTERNATIONAL UNITS TABLET PO SCH (08:29)
[2021-02-14] MEDS: ATORVASTATIN 10 MG TAB PO SCH (08:29)
[2021-02-14] MEDS ORDERED: FAMOTIDINE 20 MG TAB PO SCH (09:00)
[2021-02-14 14:00] VITALS: BP 148/69
[2021-02-14] MEDS ORDERED: ELETRIPTAN HBR 40 MG PO PRN (14:40)
[2021-02-14] MEDS: NS 1,000 ML IV SCH ×2 (16:44→23:17)
--- NOTE | 2021-02-14 17:46 | IPNPDOC ---
Text Note Date of Service The patient was seen on 02/14/21. NOTE Subjective: 80-year-old female presented to emergency room department with complaints of sharp right flank pain. She was noted to be septic secondary to obstructive uropathy. She underwent right ureteral stent placement on 02/13. Seen and examined at bedside this morning. She was in good spirits and reported feeling well today and improvement in her right flank pain. She denied chest pain, shortness of breath, abdominal pain, nausea, vomiting, problems with urination or bowel movements. Review of systems: 10 point review of system was negative except for what is noted in the HPI Physical exam: General: Lying in bed, no acute distress Head/Neck/Throat: Trachea midline, mucous membranes moist Eyes: Sclera anicteric, no erythema or discharge appreciated bilaterally Thorax: Normal respiratory effort on room air, lungs clear to auscultation bilaterally, no wheezes/rales/rhonchi Cardiovascular: Normal rate, regular rhythm, normal S1, S2; no S3, S4, rubs/gallops/murmurs Abdomen: Bowel sounds present, soft/nontender/nondistended Genitourinary: No CVA tenderness, no Lechuga in place Musculoskeletal: Moving all extremities, no edema Skin: Warm, dry Neurologic: AAOx3, speech fluent and goal-directed, no focal deficits, grossly intact Labs: See below Imaging: Please see imaging section Assessment/plan: 80-year-old female presented emergency room department with right-sided flank pain. In emergency room department she was noted to ne tachycardic to 125, febrile with temperature of 103, and leukocytosis (14.8). CT scan showed right- sided obstructive uropathy. #Sepsis -Met SIRS criteria with known source - secondary to obstructive uropathy causing pyelonephritis. Hemodynamically remained stable. -Blood cultures growing gram-negative rods. Urine culture is pending. Continue with broad-spectrum antibiotics sensitivities have resulted. #Obstructive uropathy/pyelonephritis -POD #1 right ureteral stent. Continue to strain urine. -will give morphine in low doses for her pain as she is sensitive. #Gram-negative bacteremia -Likely urine source. Continue with broad-spectrum antibiotics until cultures and sensitivities are resulted. #Electrolyte abnormality -Replete potassium. #Atrial fibrillation with rapid ventricular response -Resolved. This was likely exacerbated by her acute infection. Resume systemic anticoagulation with Eliquis. #Gastritis -Continue with Protonix. #DVT prophylaxis -Restarted on Eliquis. Disposition: Pending cultures VS,Fishbone, I+O VS, Fishbone, I+O Laboratory Tests 02/14/21 05:38 Vital Signs Date Time Temp Pulse Resp B/P (MAP) Pulse Ox O2 Delivery O2 Flow Rate FiO2 02/14/21 14:00 97.7 90 18 148/69 (95) 95 Room Air 02/13/21 16:50 1.0 I&O- Last 24 Hours up to 6 AM 02/14/21 06:00 Intake Total 2245 ml Output Total 950 ml Balance 1295 ml SELENE ZAFAR M.D. Feb 14, 2021 17:46
[2021-02-14] MEDS: APIXABAN 5 MG TAB (ELIQUIS) PO SCH (21:38)
[2021-02-14 22:00] VITALS: BP 146/64
[2021-02-15] MEDS: PIPERACILLIN/TAZOBACTAM SOD 3.375 GM in D5W MINI-BAG PLUS 50 ML IV SCH ×2 (03:55→08:56)
[2021-02-15] MEDS: KETOROLAC 30 MG/ML 1ML VIAL IV PRN (03:58)
[2021-02-15 06:00] VITALS: BP 139/63
--- NOTE | 2021-02-15 06:56 | IPNPDOC ---
Date Seen The patient was seen on 02/15/21. Progress Note pt seen and examined walking in room pain on right is gone avss belly soft urine cx pending wbc elevated yesterday, no labs from today that I see Zosyn no new gu thoughts except no need for tamsulosin, with stent in place stone will not pass ureteroscopy in future (not this admission) thank you VS, I&O, 24H, Fishbone Vital Signs/I&O Vital Signs Date Time Temp Pulse Resp B/P (MAP) Pulse Ox O2 Delivery O2 Flow Rate FiO2 02/15/21 06:00 97.1 66 18 139/63 (88) 96 Room Air 02/13/21 16:50 1.0 I&O- Last 24 Hours up to 6 AM 02/15/21 06:00 Intake Total 3070 ml Output Total 2150 ml Balance 920 ml Laboratory Data Microbiology Microbiology 02/13/21 Blood Culture - Preliminary, Resulted 02/13/21 Urine Culture, Received Pending 02/13/21 Blood Culture - Preliminary, Resulted PINKY CHRISTENSEN MD Feb 15, 2021 06:56
[2021-02-15] MEDS: VITAMIN D 1,000 INTERNATIONAL UNITS TABLET PO SCH (08:51)
[2021-02-15] MEDS: PANTOPRAZOLE 40MG VIAL (C9113 PER 1) IV SCH (08:51)
[2021-02-15] MEDS: APIXABAN 5 MG TAB (ELIQUIS) PO SCH ×2 (08:51→20:29)
[2021-02-15] MEDS: ATORVASTATIN 10 MG TAB PO SCH (08:51)
[2021-02-15] MEDS: VERAPAMIL 120 MG SR TAB PO SCH (08:51)
[2021-02-15] MEDS ORDERED: TAMSULOSIN 0.4 MG CAP PO SCH (09:00)
[2021-02-15] MEDS: NS 1,000 ML IV SCH (12:36)
--- NOTE | 2021-02-15 14:41 | IPNPDOC ---
Text Note Date of Service The patient was seen on 02/15/21. NOTE Subjective: 80-year-old female presented to emergency room department with complaints of sharp right flank pain. She was noted to be septic secondary to obstructive uropathy. She underwent right ureteral stent placement on 02/13. Seen and examined at bedside this morning. She had no new complaints. Her was on the phone and wanted him to be updated. Patient and william anna we will be repeating blood cx today, and are awaiting sensitivities from previous cx to ensure appropriate ab are given on discharge. Review of systems: 10 point review of system was negative except for what is noted in the HPI Physical exam: General: Lying in bed, no acute distress Head/Neck/Throat: Trachea midline, mucous membranes moist Eyes: Sclera anicteric, no erythema or discharge appreciated bilaterally Thorax: Normal respiratory effort on room air, lungs clear to auscultation bilaterally, no wheezes/rales/rhonchi Cardiovascular: Normal rate, regular rhythm, normal S1, S2; no S3, S4, rubs/gallops/murmurs Abdomen: Bowel sounds present, soft/nontender/nondistended Genitourinary: No CVA tenderness, no Lechuga in place Musculoskeletal: Moving all extremities, no edema Skin: Warm, dry Neurologic: AAOx3, speech fluent and goal-directed, no focal deficits, grossly intact Labs: See below Imaging: Please see imaging section Assessment/plan: 80-year-old female presented emergency room department with right-sided flank pain. In emergency room department she was noted to ne tachycardic to 125, febrile with temperature of 103, and leukocytosis (14.8). CT scan showed right- sided obstructive uropathy. #Sepsis -Met SIRS criteria with known source - secondary to obstructive uropathy causing pyelonephritis. Hemodynamically remained stable. -Blood and urine cultures grew E.coli sensitive to ceftriaxone. #Obstructive uropathy/pyelonephritis -POD #2 right ureteral stent. Continue to strain urine. -will give morphine in low doses for her pain as she is sensitive. #E.coli bacteremia -C/w ceftriaxone. Repeat blood cx today #Electrolyte abnormality -Resolved. #Atrial fibrillation with rapid ventricular response -Resolved. This was likely exacerbated by her acute infection. Continue with Eliquis. #Gastritis -Continue with Protonix. #DVT prophylaxis -Restarted on Eliquis. Disposition: Repeat blood work, and d/c in the AM VS,Fishbone, I+O VS, Fishbone, I+O Vital Signs Date Time Temp Pulse Resp B/P (MAP) Pulse Ox O2 Delivery O2 Flow Rate FiO2 02/15/21 08:51 75 147/72 02/15/21 06:00 97.1 18 96 Room Air 02/13/21 16:50 1.0 I&O- Last 24 Hours up to 6 AM 02/15/21 06:00 Intake Total 3070 ml Output Total 2150 ml Balance 920 ml SELENE ZAFAR M.D. Feb 15, 2021 14:41
[2021-02-15] MEDS: cefTRIAXone SOD 1 GM in D5W MINI-BAG PLUS 50 ML IV SCH (15:31)
[2021-02-15 16:00] VITALS: BP 159/74
[2021-02-15] MEDS: MORPHINE 2 MG/ML 1ML VIAL (J2270) IV PRN (18:03)
[2021-02-15] MEDS: FAMOTIDINE 20 MG TAB PO SCH (20:29)
[2021-02-15 22:00] VITALS: BP 151/66
[2021-02-16] MEDS: MORPHINE 2 MG/ML 1ML VIAL (J2270) IV PRN (02:15)
[2021-02-16 06:00] VITALS: BP 148/69
[2021-02-16 07:09] LABS: BASO % 0.3 % (0.0-1.0); EOS # 0.2 10^3/uL (0.0-0.5); EOS % 1.7 % (0.0-3.0); HEMATOCRIT 34.9 % (36.0-47.0); HEMOGLOBIN 11.3 g/dl (12.0-15.5); LYMPH # 1.5 10^3/uL (1.5-5.0); LYMPH % 14.6 % (24.0-44.0); MEAN CORPUSCULAR HEMOGLOBIN 29.2 pg (27.0-33.0); MEAN CORPUSCULAR HGB CONC 32.4 g/dl (32.0-36.5); MEAN CORPUSCULAR VOLUME 90.2 fl (80.0-96.0); MONO % 10.2 % (2.0-8.0); NEUTROPHILS # 7.4 10^3/uL (1.5-8.5); NEUTROPHILS % 72.6 % (36.0-66.0); PLATELET COUNT, AUTOMATED 170 10^3/uL (150-450); RED BLOOD COUNT 3.87 10^6/uL (4.00-5.40); WHITE BLOOD COUNT 10.2 10^3/uL (4.0-10.0)
[2021-02-16 07:22] LABS: BLOOD UREA NITROGEN 17 MG/DL (7-18); CALCIUM LEVEL 8.5 MG/DL (8.8-10.2); CARBON DIOXIDE LEVEL 26 MEQ/L (21-32); CHLORIDE LEVEL 110 MEQ/L (98-107); CREATININE FOR GFR 0.41 MG/DL (0.55-1.30); GLOMERULAR FILTRATION RATE > 60.0 (>39); GLUCOSE, FASTING 90 MG/DL (70-100); POTASSIUM SERUM 3.7 MEQ/L (3.5-5.1); SODIUM LEVEL 140 MEQ/L (136-145)
[2021-02-16] MEDS: ATORVASTATIN 10 MG TAB PO SCH (08:23)
[2021-02-16] MEDS: PANTOPRAZOLE 40MG VIAL (C9113 PER 1) IV SCH (08:23)
[2021-02-16] MEDS: VITAMIN D 1,000 INTERNATIONAL UNITS TABLET PO SCH (08:23)
[2021-02-16] MEDS: VERAPAMIL 120 MG SR TAB PO SCH (08:25)
[2021-02-16 12:17] LABS: CLOSTRIDIUM DIFFICILE PCR NEGATIVE (NEGATIVE)
--- NOTE | 2021-02-16 13:13 | IPNPDOC ---
Date Seen The patient was seen on 02/16/21. Progress Note Patient seen and examined Complains of diarrhea Afebrile vital signs stable Looks comfortable Urine and blood growing E. coli White count 10.2 creatinine 0.41 Currently on Rocephin No new urology thoughts Complicated UTI being treated I spoke with patient and also spoke with her over the phone Ureteroscopy with laser lithotripsy in the future Thank you VS, I&O, 24H, Fer Vital Signs/I&O Vital Signs Date Time Temp Pulse Resp B/P (MAP) Pulse Ox O2 Delivery O2 Flow Rate FiO2 02/16/21 08:25 86 169/75 02/16/21 06:00 97.4 18 94 Room Air 02/13/21 16:50 1.0 I&O- Last 24 Hours up to 6 AM 02/16/21 06:00 Intake Total 1685 ml Output Total 850 ml Balance 835 ml Laboratory Data 24H LABS Laboratory Tests 2 02/16/21 06:47: Immature Granulocyte % (Auto) 0.6, Neutrophils (%) (Auto) 72.6H, Lymphocytes (%) (Auto) 14.6L, Monocytes (%) (Auto) 10.2H, Eosinophils (%) (Auto) 1.7, Basophils (%) (Auto) 0.3, Neutrophils # (Auto) 7.4, Lymphocytes # (Auto) 1.5, Monocytes # (Auto) 1.0H, Eosinophils # (Auto) 0.2, Basophils # (Auto) 0.0, Nucleated Red Blood Cells % (auto) 0.0, Anion Gap 4L, Glomerular Filtration Rate > 60.0, Calcium Level 8.5L, Phosphorus Level 3.0, Magnesium Level 2.0 02/16/21 10:30: Clostridium difficile [id number] PRESUMPTIVE NEGATIVE, Clostridium difficile Toxin (PCR) NEGATIVE CBC/BMP Laboratory Tests 02/16/21 06:47 Microbiology Microbiology 02/15/21 Blood Culture - Preliminary, Resulted No growth after 24 hours . All specim... 02/15/21 Blood Culture - Preliminary, Resulted No growth after 24 hours . All specim... 02/13/21 Blood Culture - Final, Complete Escherichia Coli 02/13/21 Urine Culture - Final, Complete Escherichia Coli 02/13/21 Blood Culture - Final, Complete Escherichia Coli PINKY CHRISTENSEN MD Feb 16, 2021 13:13
[2021-02-16 14:00] VITALS: BP 178/68
[2021-02-16] MEDS: cefTRIAXone SOD 1 GM in D5W MINI-BAG PLUS 50 ML IV SCH (15:22)
[2021-02-16 16:09] LABS: HEMATOCRIT 36.9 % (36.0-47.0)
[2021-02-16] MEDS ORDERED: VALSARTAN 40MG TABLET (DIOVAN) PO STA (17:29)
[2021-02-16 17:30] VITALS: BP 220/110
--- NOTE | 2021-02-16 17:42 | IPNPDOC ---
Text Note Date of Service The patient was seen on 02/16/21. NOTE Subjective: 80-year-old female presented to emergency room department with complaints of sharp right flank pain. She was noted to be septic secondary to obstructive uropathy. She underwent right ureteral stent placement on 02/13. Seen and examined at bedside this morning. She had no new complaints, except for for having hematuria. She was explained this was normal after stent placement, and her Eliquis will be held on discharge for couple of days. She understood the risks of holding Eliquis and accepted them. Review of systems: 10 point review of system was negative except for what is noted in the HPI Physical exam: General: Lying in bed, no acute distress Head/Neck/Throat: Trachea midline, mucous membranes moist Eyes: Sclera anicteric, no erythema or discharge appreciated bilaterally Thorax: Normal respiratory effort on room air, lungs clear to auscultation bilaterally, no wheezes/rales/rhonchi Cardiovascular: Normal rate, regular rhythm, normal S1, S2; no S3, S4, rubs/gallops/murmurs Abdomen: Bowel sounds present, soft/nontender/nondistended Genitourinary: No CVA tenderness, no Lechuga in place Musculoskeletal: Moving all extremities, no edema Skin: Warm, dry Neurologic: AAOx3, speech fluent and goal-directed, no focal deficits, grossly intact Labs: See below Imaging: Please see imaging section Assessment/plan: 80-year-old female presented emergency room department with right-sided flank pain. In emergency room department she was noted to ne tachycardic to 125, febrile with temperature of 103, and leukocytosis (14.8). CT scan showed right- sided obstructive uropathy. #Hypertensive urgency -blood pressure was elevated w/ sbp of 220. Reports having white count syndrome, however elevated on repeat by nursing staff. Will re-check after giving valsartan. #Sepsis -Met SIRS criteria with known source - secondary to obstructive uropathy causing pyelonephritis. Hemodynamically remained stable. -Blood and urine cultures grew E.coli sensitive to ceftriaxone. #Obstructive uropathy/pyelonephritis -POD #3 right ureteral stent. Continue to strain urine. -will give morphine in low doses for her pain as she is sensitive. #E.coli bacteremia -C/w ceftriaxone. Repeat blood cx negative thus far. #Electrolyte abnormality -Resolved. #Atrial fibrillation with rapid ventricular response -Resolved. This was likely exacerbated by her acute infection. Continue with Eliquis. #Gastritis -Continue with Protonix. #DVT prophylaxis -Restarted on Eliquis. Disposition: Pt was ready for discharge but due to elevated blood pressure she will be monitored overnight. VS,Fishbone, I+O VS, Fishbone, I+O Laboratory Tests 02/16/21 06:47 02/16/21 15:55 Vital Signs Date Time Temp Pulse Resp B/P (MAP) Pulse Ox O2 Delivery O2 Flow Rate FiO2 02/16/21 17:30 220/110 (146) 02/16/21 14:00 98.9 83 19 96 02/16/21 06:00 Room Air 02/13/21 16:50 1.0 I&O- Last 24 Hours up to 6 AM 02/16/21 06:00 Intake Total 1685 ml Output Total 850 ml Balance 835 ml SELENE ZAFAR M.D. Feb 16, 2021 17:42
[2021-02-16] MEDS: LACTOBACILLUS ACIDOPHILUS CAP (BACID) PO SCH (17:55)
[2021-02-16] MEDS ORDERED: LOPERAMIDE 2 MG CAPLET PO ONE (18:00)
[2021-02-16 18:25] VITALS: BP 165/70
[2021-02-16 20:36] VITALS: BP 162/62
[2021-02-16] MEDS: FAMOTIDINE 20 MG TAB PO SCH (21:53)
[2021-02-17 06:00] VITALS: BP 159/65
[2021-02-17 06:11] LABS: BASO % 0.5 % (0.0-1.0); EOS # 0.2 10^3/uL (0.0-0.5); EOS % 2.2 % (0.0-3.0); HEMATOCRIT 37.2 % (36.0-47.0); LYMPH # 1.5 10^3/uL (1.5-5.0); MEAN CORPUSCULAR HEMOGLOBIN 29.2 pg (27.0-33.0); MEAN CORPUSCULAR HGB CONC 32.3 g/dl (32.0-36.5); MEAN CORPUSCULAR VOLUME 90.5 fl (80.0-96.0); MONO # 0.9 10^3/uL (0.0-0.8); MONO % 11.7 % (2.0-8.0); NEUTROPHILS # 5.3 10^3/uL (1.5-8.5); NEUTROPHILS % 66.4 % (36.0-66.0); PLATELET COUNT, AUTOMATED 173 10^3/uL (150-450); RED BLOOD COUNT 4.11 10^6/uL (4.00-5.40)
[2021-02-17 06:43] LABS: BLOOD UREA NITROGEN 14 MG/DL (7-18); CALCIUM LEVEL 8.7 MG/DL (8.8-10.2); CARBON DIOXIDE LEVEL 26 MEQ/L (21-32); CHLORIDE LEVEL 112 MEQ/L (98-107); CREATININE FOR GFR 0.36 MG/DL (0.55-1.30); GLOMERULAR FILTRATION RATE > 60.0 (>39); GLUCOSE, FASTING 84 MG/DL (70-100); MAGNESIUM LEVEL 2.1 MG/DL (1.8-2.4); PHOSPHORUS LEVEL 3.5 MG/DL (2.5-4.9); POTASSIUM SERUM 3.8 MEQ/L (3.5-5.1); SODIUM LEVEL 144 MEQ/L (136-145)
[2021-02-17] MEDS ORDERED: VALSARTAN 40MG TABLET (DIOVAN) PO SCH ×3 (08:00→09:00)
[2021-02-17] MEDS: LACTOBACILLUS ACIDOPHILUS CAP (BACID) PO SCH (08:24)
[2021-02-17] MEDS: ATORVASTATIN 10 MG TAB PO SCH (08:24)
[2021-02-17] MEDS: PANTOPRAZOLE 40MG VIAL (C9113 PER 1) IV SCH (08:24)
[2021-02-17] MEDS: VITAMIN D 1,000 INTERNATIONAL UNITS TABLET PO SCH (08:24)
[2021-02-17 08:35] VITALS: BP 150/62
[2021-02-17] MEDS: VERAPAMIL 120 MG SR TAB PO SCH (08:35)
[2021-02-17 08:36] VITALS: BP 150/62
[2021-02-17] MEDS ORDERED: VALSARTAN 80 MG TAB (DIOVAN) PO SCH (09:00)
[2021-02-17] MEDS ORDERED: LEVO750T14 PO (09:17)
[2021-02-17] MEDS ORDERED: RISATAB3 PO (09:17)
[2021-02-17] MEDS ORDERED: VALS40TA9 PO (09:17)
--- NOTE | 2021-02-17 15:16 | DS.PDOC ---
Discharge Summary General Date of Admission Feb 13, 2021 at 11:04 Date of Discharge 02/17/21 Discharge Summary DISCHARGE DIAGNOSES: #Sepsis #Obstructive uropathy/pyelonephritis #E.coli bacteremia #Electrolyte abnormality #Atrial fibrillation with rapid ventricular response #hx of Gastritis COMPLICATIONS/CHIEF COMPLAINT: Pyelonephritis. HOSPITAL COURSE: Ms. Mcbride is a 80-year-old female with past medical history of atrial fibrillation, hypertension, hyperlipidemia, migraines, and gastritis presented to emergency room department with complaints of sharp right flank pain. She was febrile, tachycardic and had leukocytosis. A CT scan of the abdomen and pelvis done and noted acute moderate right-sided obstructive uropathy with a 7 mm obstructing calculus in the distal right ureter along with 2 mm nonobstructing right renal calculus. She was treated for sepsis secondary to obstructive uropathy. Urology was informed of the case and she was taken for emergent stent placement. She was started on broad-spectrum antibiotics and transitioned to oral antibiotics on discharge based on cultures and sensitivities. Following stent placement there was pink tinged urine which was discussed with urology and is a common finding after stent placement. She was asked to hold her Eliquis for 2 to 3 days upon discharge knowing the risks of possible clotting which she was willing to accept. Of note, on the day of admission she had rapid ventricular response. This resolved with IV fluids. Electrolytes were also repleted. DISCHARGE MEDICATIONS: Please see below. ALLERGIES: Please see below. PHYSICAL EXAMINATION ON DISCHARGE: VITAL SIGNS: Please see below. General: Lying in bed, no acute distress Head/Neck/Throat: Trachea midline, mucous membranes moist Eyes: Sclera anicteric, no erythema or discharge appreciated bilaterally Thorax: Normal respiratory effort on room air, lungs clear to auscultation bilaterally, no wheezes/rales/rhonchi Cardiovascular: Normal rate, regular rhythm, normal S1, S2; no S3, S4, rubs/gallops/murmurs Abdomen: Bowel sounds present, soft/nontender/nondistended Genitourinary: No CVA tenderness, no Lechuga in place Musculoskeletal: Moving all extremities, no edema Skin: Warm, dry Neurologic: AAOx3, speech fluent and goal-directed, no focal deficits, grossly i ntact LABORATORY DATA: Please see below. IMAGING: CT ABD/PEL W/IV CONTRAST ONLY FINDINGS: Acute right-sided obstructive uropathy with hydroureteronephrosis and perinephric/periureteral stranding secondary to a 7 mm obstructing calculus in the distal right ureter approximately 3 cm from the ureterovesical junction (series 201; images 119-120). Small 2 mm nonobstructing right renal calculi are also identified. Left kidney is grossly normal. Liver includes hemangioma in the dome of the posterior right hepatic lobe. Spleen includes calcifications suggesting prior granulomatous disease. Pancreas, gallbladder, and bilateral adrenal glands are normal. The enteric system is without obstruction or acute inflammatory process. Colonic diverticulosis noted without acute diverticulitis. Pelvis demonstrates normal bladder and evidence for prior hysterectomy. No ascites. No free air. No adenopathy. Atherosclerotic changes to the aorta noted without aneurysm or dissection. Musculoskeletal structures demonstrate age- related degenerative changes. Lung bases demonstrate chronic granulomatous disease. IMPRESSION: 1. Acute moderate right-sided obstructive uropathy with a 7 mm obstructing calculus in the distal right ureter along with 2 mm nonobstructing right renal calculus. 2. Benign hepatic hemangioma. 3. Diverticulosis. Chest x-ray showed no acute pathology Patient asked to obtain all imaging for possible colostomy.- PROGNOSIS: Good ACTIVITY: As tolerated. DIET: Regular DISPOSITION: 01 Home, Self-Care. DISCHARGE INSTRUCTIONS: As described above DISCHARGE CONDITION: Stable. TIME SPENT ON DISCHARGE: 30 minutes. Vital Signs/I&Os Vital Signs Date Time Temp Pulse Resp B/P (MAP) Pulse Ox O2 Delivery O2 Flow Rate FiO2 02/17/21 08:36 88 150/62 (91) 02/17/21 06:00 98.7 20 95 Room Air 02/13/21 16:50 1.0 I&O- Last 24 Hours up to 6 AM 02/17/21 06:00 Intake Total 960 ml Output Total 600 ml Balance 360 ml Laboratory Data Labs 24H Laboratory Tests 2 02/17/21 05:23: Immature Granulocyte % (Auto) 1.2, Neutrophils (%) (Auto) 66.4H, Lymphocytes (%) (Auto) 18.0L, Monocytes (%) (Auto) 11.7H, Eosinophils (%) (Auto) 2.2, Basophils (%) (Auto) 0.5, Neutrophils # (Auto) 5.3, Lymphocytes # (Auto) 1.5, Monocytes # (Auto) 0.9H, Eosinophils # (Auto) 0.2, Basophils # (Auto) 0.0, Nucleated Red Blood Cells % (auto) 0.0, Anion Gap 6L, Glomerular Filtration Rate > 60.0, Calcium Level 8.7L, Phosphorus Level 3.5, Magnesium Level 2.1 CBC/BMP Laboratory Tests 02/16/21 15:55 02/17/21 05:23 Microbiology Microbiology 02/15/21 Blood Culture - Preliminary, Resulted No Growth after 48 hours. All Specime... 02/15/21 Blood Culture - Preliminary, Resulted No Growth after 48 hours. All Specime... 02/13/21 Blood Culture - Final, Complete Escherichia Coli 02/13/21 Urine Culture - Final, Complete Escherichia Coli 02/13/21 Blood Culture - Final, Complete Escherichia Coli Discharge Medications Scheduled Apixaban (Eliquis) 5 Mg Tablet, 5 MG PO BID, (Reported) Start taking on 02/19/21 Atorvastatin Calcium (Atorvastatin Calcium) 10 Mg Tablet, 10 MG PO DAILY, (Reported) Cholecalciferol (Vitamin D3) (Vitamin D3) 1,000 Unit Tablet, 1,000 UNITS PO DAILY, (Reported) Conjugated Estrogens (Premarin) 30 Gm Cream.appl, 0.25 GM VG 3XW, (Reported) Famotidine (Pepcid) 40 Mg Tablet, 40 MG PO DAILY, (Reported) L.acidoph/L.bulg/B.bif/S.therm (Marleny-Bid Caplet) 1 Each Tablet, 1 EA PO DAILY Pantoprazole Sodium (Pantoprazole Sodium) 40 Mg Tablet.dr, 40 MG PO DAILY, (Reported) Valsartan (Valsartan) 40 Mg Tablet, 40 MG PO DAILY Verapamil Hcl (Calan Sr) 240 Mg Tablet.er, 240 MG PO DAILY, (Reported) levoFLOXacin (levoFLOXacin) 750 Mg Tablet, 750 MG PO DAILY Scheduled PRN Eletriptan Hydrobromide (Eletriptan HBr) 40 Mg Tablet, 40 MG PO BID PRN for MIGRAINE, (Reported) Allergies Coded Allergies: erythromycin base (Verified Allergy, Unknown, 02/13/21) Sulfa (Sulfonamide Antibiotics) (Verified Adverse Reaction, Mild, N/V, 02/13/21) niacin (Verified Adverse Reaction, Mild, hot flashes, 02/13/21) phenobarbital (Verified Adverse Reaction, Mild, AGITATION, 02/13/21) pravastatin (Verified Adverse Reaction, Mild, bones ache, 02/13/21) SELENE ZAFAR M.D. Feb 17, 2021 15:16
[2021-02-18] MEDS ORDERED: VALSARTAN 40MG TABLET (DIOVAN) PO SCH (09:00)
== END 2021-02-17 11:36 | disposition home or self-care (01) | DRG 854 ==
LOC: M ED 06:45 → M ED INP 11:04 → ENRESERV 12:30 → M MSPAV 15:11
PROVIDERS: ADMIT Internal Medicine; ATTEND Internal Medicine
PROC: 0T768DZ Dilation of Right Ureter with Intraluminal Device, Via Natural or Artificial Opening Endoscopic (ICD-10-PCS; principal; 2021-02-13 13:15)
DX: A41.51 Sepsis due to Escherichia coli [E. coli] (principal); N13.6 Pyonephrosis; E87.6 Hypokalemia; I10 Essential (primary) hypertension; E78.5 Hyperlipidemia, unspecified; G43.909 Migraine, unspecified, not intractable, without status migrainosus; K29.70 Gastritis, unspecified, without bleeding; Z90.49 Acquired absence of other specified parts of digestive tract; Z79.01 Long term (current) use of anticoagulants; Z79.899 Other long term (current) drug therapy; Z88.1 Allergy status to other antibiotic agents; Z88.2 Allergy status to sulfonamides; Z88.8 Allergy status to other drugs, medicaments and biological substances; Z20.822 Contact with and (suspected) exposure to COVID-19

== ENCOUNTER → 2021-02-23 | Outpatient (REF) | payer MEDICARE, OTHER ==
[~2021-02-23] MED LIST changes: +ELET40TA PO; +ELIQ5TAB PO; +ESTR62CR VG; +LEVO750T14 PO; +RISATAB3 PO; +VALS40TA9 PO
== END ==
LOC: M LAB REF 11:57
PROVIDERS: ATTEND Family Medicine
DX: N20.1 Calculus of ureter (principal)

== ENCOUNTER → 2021-03-01 | Outpatient (CLI) | payer MEDICARE, OTHER ==
[~2021-03-01] MED LIST changes: +ALBU8.5H INH; +ASPI-161 PO; +BACI1CAP PO; +HYDR-3713 PO; +OXYB5TAB10 PO; +PHEN-501 PO; +SIME125T PO
== END ==
LOC: M LABSMTC 09:39
PROVIDERS: ATTEND Anesthesiology
DX: Z01.818 Encounter for other preprocedural examination (principal); Z11.52 Encounter for screening for COVID-19

== ENCOUNTER → 2021-05-03 | Outpatient (CLI) | payer MEDICARE, OTHER ==
[~2021-05-03] MED LIST changes: +CIPR500T39 PO; -D31000TA2 PO; +PYRI1TAB5 PO; +VITA100093 PO
== END ==
LOC: M WHC 07:46
PROVIDERS: ATTEND Family Medicine
DX: Z12.31 Encounter for screening mammogram for malignant neoplasm of breast (principal)

== ENCOUNTER → 2022-05-07 | Outpatient (CLI) | payer MEDICARE, OTHER | LOC: M WHC 07:54 | PROVIDERS: ATTEND Family Medicine | DX: Z12.31 Encounter for screening mammogram for malignant neoplasm of breast (principal) ==

== ENCOUNTER → 2023-01-03 | Outpatient (CLI) | payer MEDICARE, OTHER ==
[~2023-01-03] MED LIST changes: -OXYB5TAB10 PO; +OXYB5TAB11 PO
[2023-01-03 11:11] LABS: HEMATOCRIT 42.7 % (36.0-47.0); MEAN CORPUSCULAR HEMOGLOBIN 29.9 pg (27.0-33.0); MEAN CORPUSCULAR HGB CONC 32.8 g/dl (32.0-36.5); PLATELET COUNT, AUTOMATED 227 10^3/uL (150-450); RED BLOOD COUNT 4.69 10^6/uL (4.00-5.40); WHITE BLOOD COUNT 6.3 10^3/uL (4.0-10.0)
[2023-01-03 11:24] LABS: INR 1.21
[2023-01-03 11:29] LABS: ERYTHROCYTE SEDIMENTATION RATE 38 mm/hr (0-30)
[2023-01-03 11:34] LABS: ALBUMIN 4.1 G/DL (3.2-5.2); ALKALINE PHOSPHATASE 83 U/L (46-116); ALT/SGPT 19 U/L (7.0-40); AST/SGOT 17 U/L (<34); BILIRUBIN,TOTAL 0.4 MG/DL (0.3-1.2); BLOOD UREA NITROGEN 25 MG/DL (9-23); CALCIUM LEVEL 9.9 MG/DL (8.3-10.6); CARBON DIOXIDE LEVEL 25 MMOL/L (20-31); CHLORIDE LEVEL 104 MMOL/L (98-107); CREATININE FOR GFR 0.63 MG/DL (0.55-1.30); GLOMERULAR FILTRATION RATE > 60.0 (>32); GLUCOSE, FASTING 97 MG/DL (74-106); POTASSIUM SERUM 4.2 MMOL/L (3.5-5.1); SODIUM LEVEL 140 MMOL/L (136-145); TOTAL PROTEIN 6.6 G/DL (5.7-8.2)
== END ==
LOC: M RAD 09:28
PROVIDERS: ATTEND Orthopaedic Surgery
DX: Z01.818 Encounter for other preprocedural examination (principal); Z79.01 Long term (current) use of anticoagulants

== ENCOUNTER → 2023-05-10 | Outpatient (CLI) | payer MEDICARE, OTHER ==
[~2023-05-10] MED LIST changes: -ASPI-161 PO; +ASPI-615 PO; -OXYB5TAB11 PO; +OXYB5TAB14 PO
== END ==
LOC: M WHC 07:59
PROVIDERS: ATTEND Family Medicine
DX: Z12.31 Encounter for screening mammogram for malignant neoplasm of breast (principal); M15.9 Polyosteoarthritis, unspecified; Z79.52 Long term (current) use of systemic steroids

== ENCOUNTER 2024-03-24 09:51 | Day surgery (SDC) | payer MEDICARE, OTHER ==
[~2024-03-24] VITALS: Ht 154.9 cm; Wt 95.3 kg
[~2024-03-24 09:51] MED LIST changes: +ATOR1TAB21 PO; +CVS-161 PO; -LEVO750T14 PO; +LEVO75TAB PO; +PRES1CHW PO; +RELP40TA PO; +SIME125C4 PO; +VERA240C3 PO
[2024-03-24] MEDS ORDERED: NS (Normal Saline) 0.9% 1,000 ML IV SCH ×2 (10:35→13:45)
[2024-03-24] MEDS ORDERED: PEPC1TAB5 PO (11:02)
[2024-03-24] MEDS ORDERED: SUGAMMADEX SODIUM 500 MG/5 ML VIAL (BRIDION) As Ordered ONE (11:10)
[2024-03-24] MEDS ORDERED: ONDANSETRON 4MG 2ML VIAL As Ordered ONE (11:10)
[2024-03-24] MEDS ORDERED: propofoL 200 MG/20 ML VIAL As Ordered ONE (11:10)
[2024-03-24] MEDS ORDERED: fentaNYL 250 MCG/5 ML INJECTION As Ordered ONE (11:10)
[2024-03-24] MEDS ORDERED: ROCURONIUM BROMIDE 50MG/5ML VIAL As Ordered ONE (11:10)
[2024-03-24] MEDS ORDERED: LIDOCAINE 2% 100MG/5ML SDV (FOR ANES.) As Ordered ONE (11:10)
[2024-03-24] MEDS ORDERED: KETOROLAC 60MG 2ML VIAL As Ordered ONE (11:10)
[2024-03-24] MEDS ORDERED: ACETAMINOPHEN 1000MG/100ML IV BAG As Ordered ONE (11:11)
[2024-03-24] MEDS: ceFAZolin SOD 2 GM in IV 1 EA IV ONE (12:22)
[2024-03-24] MEDS ORDERED: LABETALOL 100MG/20ML VIAL As Ordered ONE (13:05)
[2024-03-24] MEDS ORDERED: oxyCODONE 5MG TAB PO PRN (13:45)
[2024-03-24] MEDS ORDERED: fentaNYL 100 MCG/2 ML INJECTION IV PRN (13:45)
[2024-03-24] MEDS: HYDROMORPHONE HCL 0.5 MG/ 0.5 ML SYRINGE IV PRN (13:52)
[2024-03-24] MEDS: ONDANSETRON 4MG 2ML VIAL IV PRN (13:52)
[2024-03-24] MEDS: PROMETHAZINE 25MG/ML 1ML VIAL IV PRN (14:11)
[2024-03-24] MEDS ORDERED: NORCO, ANEXSIA 5/325MG TABLET (HYDROcodone/ACETAMINOPHEN) PO PRN (14:15)
[2024-03-24 15:40] VITALS: BP 174/98; TEMP 97.2; O2SAT 98
== END 2024-03-24 16:20 | disposition home or self-care (01) ==
LOC: M SDC 09:51
PROVIDERS: ATTEND Surgery
DX: K40.90 Unilateral inguinal hernia, without obstruction or gangrene, not specified as recurrent (principal); I48.91 Unspecified atrial fibrillation; R06.83 Snoring; Z68.39 Body mass index [BMI] 39.0-39.9, adult; Z88.1 Allergy status to other antibiotic agents; Z88.8 Allergy status to other drugs, medicaments and biological substances; Z88.2 Allergy status to sulfonamides; Z79.899 Other long term (current) drug therapy
CPT/HCPCS: 49650; C1781; J0131; J0665; J0690; J1100; J1171; J1920; J2405; J2550; J3010; S2900

== ENCOUNTER → 2024-05-12 | Outpatient (CLI) | payer MEDICARE, OTHER ==
[~2024-05-12] MED LIST changes: +PEPC1TAB5 PO
== END ==
LOC: M WHC 09:37
PROVIDERS: ATTEND Family Medicine
DX: Z12.31 Encounter for screening mammogram for malignant neoplasm of breast (principal)

== ENCOUNTER → 2024-12-04 | Outpatient (REF) | payer MEDICARE, OTHER ==
[~2024-12-04] MED LIST changes: -VERA240C3 PO; +VERA240C5 PO
== END ==
LOC: M LAB REF 17:21
PROVIDERS: ATTEND Nurse Practitioner Family
DX: C44.311 Basal cell carcinoma of skin of nose (principal)